=== PATIENT | female | born 1960 | race Two or more races ===

== ENCOUNTER 2019-10-06 02:30 | Emergency (ER) | payer MEDICAID ==
[~2019-10-06] VITALS: Ht 157.5 cm; Wt 80.0 kg
[2019-10-06] MEDS ORDERED: KETOROLAC 30 MG/1 ML IM ONE (03:30)
[2019-10-06] MEDS ORDERED: KETOROLAC 60 MG/2 ML ONE (03:51)
[2019-10-06 05:29] VITALS: BP 138/86
== END 2019-10-06 05:30 | disposition home or self-care (01) ==
LOC: ED 05:13
DX: S69.91XA Unspecified injury of right wrist, hand and finger(s), initial encounter (principal); S69.92XA Unspecified injury of left wrist, hand and finger(s), initial encounter; S89.92XA Unspecified injury of left lower leg, initial encounter; Z72.89 Other problems related to lifestyle; W01.0XXA Fall on same level from slipping, tripping and stumbling without subsequent striking against object, initial encounter; Y93.01 Activity, walking, marching and hiking; Y92.89 Other specified places as the place of occurrence of the external cause; Y99.8 Other external cause status
CPT/HCPCS: 29125; 73110; 96372; 99283; J1885